=== PATIENT | male | born 1980 | race Two or more races ===

== ENCOUNTER 2016-07-16 17:45 | Emergency (ER) | payer SELFPAY ==
--- NOTE | 2016-08-04 21:34 | ER ---
ADMIT: 07/16/2016 RM/LOC: ER [facility] MR#: [id number] [address] [id number] DEVONTE LOREDO [address] [address] Emergency Room Report SEX: M AGE: 36 : 1980 DATE: 07/16/2016 HISTORY OF PRESENT ILLNESS: A 36-year-old gentleman with a spontaneous swelling of the right knee today. He denies any trauma. He denies any twisting mechanism. See T-sheet for history and physical. X-ray reveals small effusion and soft tissue swelling. Approximately 30 mL of fluid was aspirated from the knee. The patient was placed in a knee immobilizer, given crutches and pain medicine. Told to stay off his leg for least 1 week and to follow up with the doctor this week. DIAGNOSIS: Knee effusion. Phil Dawn MD/ jodie JOB #: [id number] CC: Bowen Baker MD, Attending Physician Jerry Davis MD, Family Physician
== END 2016-07-16 19:22 | disposition home or self-care (01) ==
LOC: ER 17:45
DX: M25.461 Effusion, right knee (principal)